=== PATIENT | female | born 1935 | race Caucasian/White ===

== ENCOUNTER → 2016-05-22 | Outpatient (CLI) | payer MEDICARE, OTHER ==
[~2016-05-22] MED LIST: APIX5 PO; APIX5TAB PO; CARB25TA PO; CEFT250T8 PO; CLON1 PO; CLON1TAB PO; DONE10TA14; ESOM1CAP6 PO; PRAM0.12 PO; REME30TA PO; SERT-132 PO; SYMB6CAP PO; TAB-TAB PO; TRAZ50TA4 PO
[2016-05-22 12:19] LABS: HEMATOCRIT 36.3 % (35.0-46.0); MEAN CELL VOLUME 87.6 FL (80.0-100.0); MEAN CORPUSCULAR HEMOGLOBIN 29.3 PG (27.0-34.0); MEAN CORPUSCULAR HGB CONC 33.5 % (32.0-36.0); PLATELET COUNT 254 TH/MM3 (150-450); RED BLOOD COUNT 4.14 MIL/MM3 (4.00-5.30); REVIEW FLAG FINAL; WHITE BLOOD COUNT 4.4 TH/MM3 (4.0-11.0)
[2016-05-22 12:51] LABS: ALKALINE PHOSPHATASE 84 U/L (45-117); ALT (GPT) 22 U/L (10-53); ANION GAP 7 MEQ/L (5-15); AST (GOT) 17 U/L (15-37); BICARBONATE 29.5 MEQ/L (21.0-32.0); BLOOD UREA NITROGEN 16 MG/DL (7-18); CHLORIDE 106 MEQ/L (98-107); FREE T4 0.88 NG/DL (0.76-1.46); GLOMERULAR FILTRATION RATE 53 ML/MIN (>89); GLUCOSE,FASTING 98 MG/DL (74-99); HDL CHOLESTEROL 72.9 MG/DL (40.0-60.0); LDL CHOLESTEROL 131 MG/DL (0-99); LDL CHOLESTEROL DIRECT 162 MG/DL (0-99); POTASSIUM 4.2 MEQ/L (3.5-5.1); SODIUM (NA) 142 MEQ/L (136-145); TOTAL BILIRUBIN ADULT 0.2 MG/DL (0.2-1.0)
[2016-05-22 15:51] LABS: HEMOGLOBIN A1a 0.9 %; HEMOGLOBIN A1b 1.8 %; HEMOGLOBIN Ao 85.3 %; HEMOGLOBIN P3 3.9 %
== END ==
LOC: PLAB 08:15
PROVIDERS: ATTEND Family Medicine
DX: E78.2 Mixed hyperlipidemia (principal); I10 Essential (primary) hypertension; E03.8 Other specified hypothyroidism; R73.01 Impaired fasting glucose
CPT/HCPCS: 36415; 80053; 80061; 83036; 83721; 84439; 84443; 85027

== ENCOUNTER → 2016-08-27 | Outpatient (CLI) | payer MEDICARE, OTHER ==
[2016-08-27 09:20] LABS: HEMATOCRIT 39.6 % (35.0-46.0); MEAN CELL VOLUME 83.8 FL (80.0-100.0); MEAN CORPUSCULAR HEMOGLOBIN 26.5 PG (27.0-34.0); MEAN CORPUSCULAR HGB CONC 31.6 % (32.0-36.0); PLATELET COUNT 252 TH/MM3 (150-450); RED BLOOD COUNT 4.72 MIL/MM3 (4.00-5.30); RED CELL DISTRIBUTION WIDTH 15.1 % (11.6-17.2); REVIEW FLAG FINAL
[2016-08-27 09:40] LABS: ANION GAP 8 MEQ/L (5-15); AST (GOT) 16 U/L (15-37); BICARBONATE 29.2 MEQ/L (21.0-32.0); BLOOD UREA NITROGEN 16 MG/DL (7-18); CHLORIDE 105 MEQ/L (98-107); GLOMERULAR FILTRATION RATE 53 ML/MIN (>89); GLUCOSE,FASTING 95 MG/DL (74-99); POTASSIUM 4.4 MEQ/L (3.5-5.1); SODIUM (NA) 142 MEQ/L (136-145)
[2016-08-27 10:06] LABS: ALKALINE PHOSPHATASE 109 U/L (45-117); ALT (GPT) 11 U/L (10-53); FREE T4 0.89 NG/DL (0.76-1.46); HDL CHOLESTEROL 62.8 MG/DL (40.0-60.0); LDL CHOLESTEROL 139 MG/DL (0-99); LDL CHOLESTEROL DIRECT 136 MG/DL (0-99); TOTAL BILIRUBIN ADULT 0.2 MG/DL (0.2-1.0)
== END ==
LOC: PLAB 06:50
PROVIDERS: ATTEND Family Medicine
DX: E78.2 Mixed hyperlipidemia (principal); I10 Essential (primary) hypertension; E03.8 Other specified hypothyroidism; G20 Parkinson's disease
CPT/HCPCS: 36415; 80053; 80061; 83721; 84439; 84443; 85027

== ENCOUNTER 2016-10-08 10:54 | Emergency (ER) | payer MEDICARE, OTHER ==
[~2016-10-08] VITALS: Ht 149.9 cm; Wt 60.0 kg
[2016-10-08 10:56] VITALS: BP 136/91; PULSE 109; RESP 20; TEMP 97.8; O2SAT 97
--- NOTE | 2016-10-08 11:04 | PD ---
HPI Chief Complaint: GI Complaint Time Seen by Provider: 11:03 Travel History International Travel<30 days: No Contact w/Intl Traveler<30days: No Traveled to known affect area: No History of Present Illness HPI 81 YO F with PMH of esophageal stricture, Parkinson's, hyperthyroidism, anxiety , depression, GERD presents to the ED for evaluation of 3 day history of inability to eat solid foods or take her medications. Patient states last attempt at eating a cracker was too painful. She has been drinking Boost and water and tea. She endorses one episode of retching but denies nausea and vomiting. She denies other somatic symptoms. She states she has a gastroenterology appointment on the with Dr. Oakley. [facility] Past Medical History Arthritis: Yes Blood Disorders: No Anxiety: Yes Depression: Yes Heart Rhythm Problems: No Cancer: No Cardiovascular Problems: Yes High Cholesterol: Yes Chest Pain: No Congestive Heart Failure: No Diabetes: No Diminished Hearing: No Endocrine: Yes Gastrointestinal Disorders: Yes GERD: Yes Genitourinary: Yes (UTI) Hypertension: Yes Immune Disorder: Yes Musculoskeletal: Yes Neurologic: Yes (PARKINSONS DISEASE) Parkinson's Disease: Yes Psychiatric: Yes Reproductive: No Respiratory: No Immunizations Current: Yes Thyroid Disease: No Past Surgical History Abdominal Surgery: Yes (HERNIA) Section: Yes Eye Surgery: Yes (CATARACT) Gynecologic Surgery: Yes Other Surgery: Yes (BUNIONECTOMY) Social History Alcohol Use: No Tobacco Use: No Substance Use: No Allergies-Medications (Allergen,Severity, Reaction): Coded Allergies: Darvon (Verified Allergy, Severe, FAINTED, 10/08/16) Penicillin (Verified Allergy, Mild, 10/08/16) Reported Meds & Prescriptions Reported Meds & Active Scripts Active Reported Clonazepam 1 Mg Tab 1 Mg PO DAILY Mirtazapine 30 Mg Tab 30 Mg PO HS Trazodone (Trazodone HCl) 50 Mg Tab 50 Mg PO HS Gabapentin 100 Mg Cap 100 Mg PO TID Nexium (Esomeprazole DR) 40 Mg Capdr 40 Mg PO DAILY Lorazepam 0.5 Mg Tab 0.5 Mg PO DAILY PRN Escitalopram (Escitalopram Oxalate) 10 Mg Tab 10 Mg PO DAILY Alprazolam 0.25 Mg Tab 0.25 Mg PO Q8H PRN Levothyroxine (Levothyroxine Sodium) 25 Mcg Tab 25 Mcg PO DAILY Megestrol (Megestrol Acetate) 20 Mg Tab 20 Mg PO DAILY Esomeprazole DR 40 Mg Capdr 40 Mg PO DAILY Carbidopa-Levodopa 25-100 Mg Tab 1 Tab PO Q8HR Sertraline (Sertraline HCl) 50 Mg Tab 50 Mg PO DAILY Review of Systems Except as stated in HPI: all other systems reviewed are Neg Physical Exam Narrative GENERAL: Well-nourished, well-developed obese white female in no acute distress. SKIN: Focused skin assessment warm/dry. HEAD: Normocephalic. EYES: No scleral icterus. No injection or drainage. NECK: Supple, trachea midline. No JVD or lymphadenopathy. CARDIOVASCULAR: Regular rate and rhythm without murmurs, gallops, or rubs. RESPIRATORY: Breath sounds equal bilaterally. No accessory muscle use. GASTROINTESTINAL: Abdomen soft, protuberant, nondistended. Mild epigastric tenderness. Active bowel sounds. MUSCULOSKELETAL: No cyanosis, or edema. BACK: Nontender without obvious deformity. No CVA tenderness. Data Data Last Documented VS Vital Signs Date Time Temp Pulse Resp B/P Pulse Ox O2 Delivery O2 Flow Rate FiO2 10/08/16 13:54 96 Room Air 10/08/16 10:56 97.8 109 20 136/91 Orders Barium Swallow (10/08/16 ) Iv Access Insert/Monitor (10/08/16 11:27) Ecg Monitoring (10/08/16 11:27) Oximetry (10/08/16 11:27) Sodium Chloride 0.9% Flush (Ns Flush) (10/08/16 11:30) Al-Mag Hy-Si 40-40-4 Mg/Ml Liq (Mag-Al P (10/08/16 12:15) Lidocaine 2% Viscous (Xylocaine 2% Visco (10/08/16 12:15) MDM Medical Decision Making Medical Screen Exam Complete: Yes Emergency Medical Condition: Yes Differential Diagnosis Esophageal stricture versus GERD versus hiatal hernia versus esophageal foreign body versus other Narrative Course 81 YO F with PMH of esophageal stricture, Parkinson's, hyperthyroidism, anxiety , depression, GERD presents to the ED for evaluation of 3 day history of inability to eat solid foods or take her medications. Patient states last attempt at eating a cracker was too painful. She has been drinking Boost and water and tea. She endorses one episode of retching but denies nausea and vomiting. Vitals reviewed. Patient is well-appearing on physical exam. She is able to drink a cup of water with no problems. There is mild epigastric tenderness but physical exam is otherwise unremarkable. Barium swallow reveals no esophageal obstruction, moderate sliding hiatal hernia, moderate nonspecific esophageal motility disorder. I discussed the results of the study with the patient. She has follow-up with the rocket engine mechanic in 9 days. She is instructed to eat a soft diet, drink plenty of fluids, use good posture when eating and follow up as planned. She received a GI Cocktail and reported improvement of her symptoms. She indicated understanding of the instructions and is agreeable to a care plan. She stable and discharged home. Diagnosis Primary Impression: Hiatal hernia Referrals: Juarez Oakley MD Patient Instructions: General Instructions, Hiatal Hernia (ED), Soft Diet (ED) Additional Instructions: Rest, hydrate. Eat a soft food diet for the next few days and gradually reintroduce new foods. Use good posture when eating. Make sure to take your Nexium daily. Follow-up with Dr. Oakley as planned. Return to the ED for any urgent or emergent medical condition. Disposition: 01 DISCHARGE HOME Condition: Stable Georgette Dave Oct 08, 2016 11:04
[2016-10-08] MEDS ORDERED: SODIUM CHLORIDE 0.9% FLUSH 10 ML FLUSH IV FLUSH PRN (11:30)
[2016-10-08] MEDS ORDERED: ESOM1CAP16 PO (11:31)
[2016-10-08] MEDS ORDERED: NEXI40CA PO (11:31)
[2016-10-08] MEDS ORDERED: MEGE20TA PO (11:31)
[2016-10-08] MEDS ORDERED: LEVO25TA4 PO (11:31)
[2016-10-08] MEDS ORDERED: LORA-373 PO (11:31)
[2016-10-08] MEDS ORDERED: ESCI10TA PO (11:31)
[2016-10-08] MEDS ORDERED: ALPR0.25 PO (11:31)
[2016-10-08] MEDS ORDERED: TRAZ50TA12 PO (11:31)
[2016-10-08] MEDS ORDERED: CLON1TAB PO (11:31)
[2016-10-08] MEDS ORDERED: SERT-132 PO (11:31)
[2016-10-08] MEDS ORDERED: CARB25TA9 PO (11:31)
[2016-10-08] MEDS ORDERED: GABA100C4 PO (11:31)
[2016-10-08] MEDS ORDERED: MIRT30TA PO (11:31)
--- NOTE | 2016-10-08 12:08 | RADRPT ---
EXAM DATE/TIME: 10/08/2016 11:39 [facility] COMPARISON: No previous studies available for comparison. INDICATIONS : Dysphagia; worsening symptoms. Scheduled for dilatation on Oct 17. FLUORO TIME: 0.9 minutes IMAGE COUNT: 15 CONTRAST: 1. Liquid E-Z Paque Barium Sulfate (60% w/v, 41% w.w) MEDICAL HISTORY : None. SURGICAL HISTORY : None. ENCOUNTER: Initial ACUITY: 2 days PAIN SCORE: 0/10 LOCATION: Esophagus. FINDINGS: There is a moderate nonspecific esophageal motility disorder. No obstructing or constricting lesions are seen within the esophagus. There is a moderate sized sliding hiatal hernia. CONCLUSION: 1. Negative for esophageal obstruction. Moderate size sliding hiatal hernia. Moderate nonspecific eso phageal motility disorder. Joseph Naranjo MD on October 08, 2016 at 12:04 Board Certified Radiologist. This report was verified electronically.
[2016-10-08] MEDS ORDERED: LIDOCAINE VISCOUS 2% SOLN 15 ML UDC PO ONE (12:15)
[2016-10-08] MEDS ORDERED: ALUMINUM/MAGNESIUM/SIMETH 30 ML CUP PO ONE (12:15)
[2016-10-08 13:54] VITALS: O2SAT 96
== END 2016-10-08 13:56 | disposition home or self-care (01) ==
LOC: NEPD 10:54
DX: K44.9 Diaphragmatic hernia without obstruction or gangrene (principal); I10 Essential (primary) hypertension; E07.9 Disorder of thyroid, unspecified; G20 Parkinson's disease; E78.00 Pure hypercholesterolemia, unspecified; Z87.39 Personal history of other diseases of the musculoskeletal system and connective tissue; Z86.59 Personal history of other mental and behavioral disorders; Z86.79 Personal history of other diseases of the circulatory system; Z87.19 Personal history of other diseases of the digestive system; Z87.448 Personal history of other diseases of urinary system
CPT/HCPCS: 74230; 99283

== ENCOUNTER → 2016-10-09 | Outpatient (CLI) | payer MEDICARE, OTHER ==
[~2016-10-09] MED LIST changes: +ALPR0.25 PO; -APIX5 PO; -APIX5TAB PO; -CARB25TA PO; +CARB25TA9 PO; -CEFT250T8 PO; -CLON1 PO; -DONE10TA14; +ESCI10TA PO; +ESOM1CAP16 PO; -ESOM1CAP6 PO; +GABA100C4 PO; +LEVO25TA4 PO; +LORA-373 PO; +MEGE20TA PO; +MIRT30TA PO; +NEXI40CA PO; -PRAM0.12 PO; -REME30TA PO; -SYMB6CAP PO; -TAB-TAB PO; +TRAZ50TA12 PO; -TRAZ50TA4 PO
[2016-10-09 12:25] LABS: CHLORIDE 102 MEQ/L (98-107); POTASSIUM 3.7 MEQ/L (3.5-5.1); SODIUM (NA) 137 MEQ/L (136-145)
[2016-10-09 12:30] LABS: ANION GAP 9 MEQ/L (5-15); BICARBONATE 25.6 MEQ/L (21.0-32.0); BLOOD UREA NITROGEN 16 MG/DL (7-18)
[2016-10-09 12:32] LABS: ALT (GPT) 8 U/L (10-53)
[2016-10-09 12:33] LABS: AST (GOT) 29 U/L (15-37); GLOMERULAR FILTRATION RATE 55 ML/MIN (>89)
[2016-10-09 12:34] LABS: TOTAL BILIRUBIN ADULT 0.6 MG/DL (0.2-1.0)
[2016-10-09 12:35] LABS: ALKALINE PHOSPHATASE 123 U/L (45-117)
== END ==
LOC: PLAB 11:40
PROVIDERS: ATTEND Internal Medicine Gastroenterology
DX: Z12.11 Encounter for screening for malignant neoplasm of colon (principal)
CPT/HCPCS: 36415; 80053

== ENCOUNTER → 2016-10-29 | Outpatient (CLI) | payer MEDICARE, OTHER | LOC: PLAB 06:41 | PROVIDERS: ATTEND Internal Medicine Gastroenterology | DX: R74.8 Abnormal levels of other serum enzymes (principal) | CPT/HCPCS: 36415; 82977 ==

== ENCOUNTER → 2016-11-26 | Outpatient (CLI) | payer MEDICARE, OTHER ==
[2016-11-26 09:30] LABS: HEMATOCRIT 39.8 % (35.0-46.0); MEAN CELL VOLUME 84.6 FL (80.0-100.0); MEAN CORPUSCULAR HEMOGLOBIN 26.7 PG (27.0-34.0); MEAN CORPUSCULAR HGB CONC 31.5 % (32.0-36.0); PLATELET COUNT 231 TH/MM3 (150-450); RED BLOOD COUNT 4.71 MIL/MM3 (4.00-5.30); RED CELL DISTRIBUTION WIDTH 16.3 % (11.6-17.2); REVIEW FLAG FINAL; WHITE BLOOD COUNT 4.9 TH/MM3 (4.0-11.0)
[2016-11-26 09:43] LABS: ANION GAP 7 MEQ/L (5-15); AST (GOT) 15 U/L (15-37); BLOOD UREA NITROGEN 16 MG/DL (7-18); CHLORIDE 106 MEQ/L (98-107); GLOMERULAR FILTRATION RATE 57 ML/MIN (>89); GLUCOSE,FASTING 89 MG/DL (74-99); POTASSIUM 3.5 MEQ/L (3.5-5.1); SODIUM (NA) 139 MEQ/L (136-145)
[2016-11-26 09:44] LABS: ALT (GPT) 22 U/L (10-53)
[2016-11-26 09:54] LABS: ALKALINE PHOSPHATASE 103 U/L (45-117); HDL CHOLESTEROL 62.4 MG/DL (40.0-60.0); LDL CHOLESTEROL 99 MG/DL (0-99); LDL CHOLESTEROL DIRECT 119 MG/DL (0-99); TOTAL BILIRUBIN ADULT 0.3 MG/DL (0.2-1.0)
[2016-11-26 18:04] LABS: HEMOGLOBIN A1a 1.1 %; HEMOGLOBIN A1b 1.8 %; HEMOGLOBIN Ao 84.9 %; HEMOGLOBIN P3 3.8 %
== END ==
LOC: PLAB 06:55
PROVIDERS: ATTEND Family Medicine
DX: R53.83 Other fatigue (principal); E78.2 Mixed hyperlipidemia; I10 Essential (primary) hypertension; R73.01 Impaired fasting glucose
CPT/HCPCS: 36415; 80053; 80061; 83036; 83721; 84443; 85027

== ENCOUNTER → 2017-02-21 | Outpatient (CLI) | payer MEDICARE, OTHER ==
[~2017-02-21] MED LIST changes: -LORA-373 PO; +LORA0.5T PO
[2017-02-21 09:39] LABS: MEAN CELL VOLUME 87.3 FL (80.0-100.0); MEAN CORPUSCULAR HEMOGLOBIN 28.6 PG (27.0-34.0); MEAN CORPUSCULAR HGB CONC 32.8 % (32.0-36.0); PLATELET COUNT 264 TH/MM3 (150-450); RED BLOOD COUNT 4.47 MIL/MM3 (4.00-5.30); RED CELL DISTRIBUTION WIDTH 14.5 % (11.6-17.2); REVIEW FLAG FINAL; WHITE BLOOD COUNT 6.5 TH/MM3 (4.0-11.0)
[2017-02-21 09:50] LABS: ANION GAP 5 MEQ/L (5-15); AST (GOT) 15 U/L (15-37); BICARBONATE 29.3 MEQ/L (21.0-32.0); BLOOD UREA NITROGEN 14 MG/DL (7-18); CHLORIDE 104 MEQ/L (98-107); GLOMERULAR FILTRATION RATE 59 ML/MIN (>89); GLUCOSE,FASTING 90 MG/DL (74-99); POTASSIUM 3.8 MEQ/L (3.5-5.1); SODIUM (NA) 138 MEQ/L (136-145)
[2017-02-21 10:18] LABS: ALKALINE PHOSPHATASE 97 U/L (45-117); ALT (GPT) 18 U/L (10-53); FREE T4 1.04 NG/DL (0.76-1.46); HDL CHOLESTEROL 66.1 MG/DL (40.0-60.0); LDL CHOLESTEROL 121 MG/DL (0-99); LDL CHOLESTEROL DIRECT 140 MG/DL (0-99); TOTAL BILIRUBIN ADULT 0.2 MG/DL (0.2-1.0)
[2017-02-21 10:21] LABS: WESTERGREN SEDIMENTATION RATE 28 mm/hr (0-30)
[2017-02-21 16:06] LABS: HEMOGLOBIN A1a 1.1 %; HEMOGLOBIN A1b 1.9 %; HEMOGLOBIN Ao 84.5 %; HEMOGLOBIN LA1C 2.1 %
== END ==
LOC: PLAB 06:55
PROVIDERS: ATTEND Family Medicine
DX: R53.83 Other fatigue (principal); E78.2 Mixed hyperlipidemia; I10 Essential (primary) hypertension; E03.8 Other specified hypothyroidism; M35.9 Systemic involvement of connective tissue, unspecified; E55.9 Vitamin D deficiency, unspecified; E53.9 Vitamin B deficiency, unspecified
CPT/HCPCS: 36415; 80053; 80061; 82306; 82607; 83036; 83721; 84439; 84443; 85027; 85652

== ENCOUNTER → 2017-04-04 | Outpatient (CLI) | payer MEDICARE, OTHER ==
[2017-04-04 10:31] LABS: FREE T4 0.88 NG/DL (0.76-1.46)
== END ==
LOC: PLAB 06:43
PROVIDERS: ATTEND Family Medicine
DX: R53.83 Other fatigue (principal); E03.8 Other specified hypothyroidism; E55.9 Vitamin D deficiency, unspecified
CPT/HCPCS: 36415; 82306; 84439; 84443

== ENCOUNTER → 2017-04-11 | Outpatient (CLI) | payer MEDICARE, OTHER ==
[~2017-04-11] MED LIST changes: +MACR100C2 PO
[2017-04-11 11:51] LABS: % SATURATION IRON PROFILE 7.3 % (20-50); FREE T4 0.83 NG/DL (0.76-1.46); IRON (FE) 34 MCG/DL (50-170); TOTAL IRON BINDING CAPACITY 466 MCG/DL (250-450)
[2017-04-11 15:14] LABS: HEMOGLOBIN A1C 5.8 % (4.3-6.0)
[2017-04-14 07:40] LABS: KAPPA LIGHT CHAIN 237 MG/DL (170-370)
[2017-04-14 07:50] LABS: IMMUNOGLOBULIN A 151 MG/DL (96-532); IMMUNOGLOBULIN G 968 MG/DL (650-1610); IMMUNOGLOBULIN M 106 MG/DL (39-238); LAMBDA LIGHT CHAIN 125 MG/DL (90-210)
== END ==
LOC: PLAB 07:55
PROVIDERS: ATTEND Psychiatry & Neurology Neurology
DX: G60.9 Hereditary and idiopathic neuropathy, unspecified (principal); R41.3 Other amnesia
CPT/HCPCS: 36415; 82607; 82784; 83036; 83540; 83550; 83883; 84439; 84443; 86334

== ENCOUNTER 2017-04-18 13:50 | Emergency (ER) | payer MEDICARE, OTHER ==
[~2017-04-18] VITALS: Ht 162.6 cm; Wt 70.0 kg
[~2017-04-18 13:50] MED LIST changes: -MACR100C2 PO
[2017-04-18 14:00] VITALS: BP 133/63; PULSE 85; RESP 16; TEMP 97.5; O2SAT 98
--- NOTE | 2017-04-18 14:14 | PD ---
HPI Chief Complaint: Pain: Acute or Chronic Time Seen by Provider: 14:14 Travel History International Travel<30 days: No Contact w/Intl Traveler<30days: No Traveled to known affect area: No History of Present Illness HPI 81-year-old female with history of Parkinson's disease, neuropathy, hypertension , presents to emergency department for evaluation of bilateral lower extremity pain. Patient states she typically has bilateral lower extremity pain over the last hour and a half she has began having restless legs and more pain down the lateral aspect of mostly the thighs. She denies any injury. No recent injury. She is ambulatory with walker assistance and is still able to ambulate. She takes gabapentin for her neuropathy. She denies any recent illnesses, fever or chills. States there cramping and it's difficult to hold still. She has no other symptoms to report. PFSH Past Medical History Arthritis: Yes Blood Disorders: No Anxiety: Yes Depression: Yes Heart Rhythm Problems: No Cancer: No Cardiovascular Problems: Yes High Cholesterol: Yes Chest Pain: No Congestive Heart Failure: No Diabetes: No Diminished Hearing: No Endocrine: Yes Gastrointestinal Disorders: Yes GERD: Yes Genitourinary: Yes (UTI) Hypertension: Yes Immune Disorder: Yes Musculoskeletal: Yes Neurologic: Yes (PARKINSONS DISEASE) Parkinson's Disease: Yes Psychiatric: Yes Reproductive: No Respiratory: No Immunizations Current: Yes Thyroid Disease: No Past Surgical History Abdominal Surgery: Yes (HERNIA) Section: Yes Eye Surgery: Yes (CATARACT) Gynecologic Surgery: Yes Other Surgery: Yes (BUNIONECTOMY) Social History Alcohol Use: No Tobacco Use: No Substance Use: No Allergies-Medications (Allergen,Severity, Reaction): Coded Allergies: propoxyphene (Unverified Allergy, Severe, FAINTED, 10/22/16) penicillin G (Unverified Allergy, Mild, 10/22/16) Reported Meds & Prescriptions Reported Meds & Active Scripts Active Reported Clonazepam 1 Mg Tab 1 Mg PO DAILY Mirtazapine 30 Mg Tab 30 Mg PO HS Trazodone (Trazodone HCl) 50 Mg Tab 50 Mg PO HS Gabapentin 100 Mg Cap 300 Mg PO TID Nexium (Esomeprazole DR) 40 Mg Capdr 40 Mg PO DAILY Lorazepam 0.5 Mg Tab 0.5 Mg PO DAILY PRN Escitalopram (Escitalopram Oxalate) 10 Mg Tab 10 Mg PO DAILY Alprazolam 0.25 Mg Tab 0.25 Mg PO Q8H PRN Levothyroxine (Levothyroxine Sodium) 25 Mcg Tab 75 Mcg PO DAILY Megestrol (Megestrol Acetate) 20 Mg Tab 20 Mg PO DAILY Esomeprazole DR 40 Mg Capdr 40 Mg PO DAILY Sertraline (Sertraline HCl) 50 Mg Tab 50 Mg PO DAILY Review of Systems Except as stated in HPI: all other systems reviewed are Neg Physical Exam Narrative GENERAL: Well-nourished elderly female patient, in no acute distress. SKIN: Focused skin assessment warm/dry. HEAD: Atraumatic. Normocephalic. EYES: Pupils equal and round. No scleral icterus. No injection or drainage. ENT: No nasal bleeding or discharge. Mucous membranes pink and moist. NECK: Trachea midline. No JVD. CARDIOVASCULAR: Regular rate and rhythm. No murmur appreciated. RESPIRATORY: No accessory muscle use. Clear to auscultation. Breath sounds equal bilaterally. GASTROINTESTINAL: Abdomen soft, non-tender, nondistended. Hepatic and splenic margins not palpable. MUSCULOSKELETAL: No obvious deformities. No clubbing. No cyanosis. No edema. NEUROLOGICAL: Awake and alert. No obvious cranial nerve deficits. Motor grossly within normal limits. Normal speech. Data Data Last Documented VS Vital Signs Date Time Temp Pulse Resp B/P (MAP) Pulse Ox O2 Delivery O2 Flow Rate FiO2 04/18/17 16:32 81 16 137/76 (96) 99 Room Air 04/18/17 14:00 97.5 Orders Orders Iv Access Insert/Monitor (04/18/17 14:14) Complete Blood Count With Diff (04/18/17 14:14) Basic Metabolic Panel (Bmp) (04/18/17 14:14) Ketorolac Inj (Toradol Inj) (04/18/17 14:15) Sodium Chlorid 0.9% 500 Ml Inj (Ns 500 M (04/18/17 14:15) Morphine Inj (Morphine Inj) (04/18/17 16:00) Ondansetron Inj (Zofran Inj) (04/18/17 16:00) Labs Laboratory Tests Test 04/18/17 15:00 White Blood Count 6.2 TH/MM3 Red Blood Count 4.11 MIL/MM3 Hemoglobin 11.6 GM/DL Hematocrit 35.4 % Mean Corpuscular Volume 86.2 FL Mean Corpuscular Hemoglobin 28.1 PG Mean Corpuscular Hemoglobin Concent 32.7 % Red Cell Distribution Width 14.5 % Platelet Count 216 TH/MM3 Mean Platelet Volume 8.5 FL Neutrophils (%) (Auto) 65.9 % Lymphocytes (%) (Auto) 22.3 % Monocytes (%) (Auto) 8.6 % Eosinophils (%) (Auto) 2.3 % Basophils (%) (Auto) 0.9 % Neutrophils # (Auto) 4.1 TH/MM3 Lymphocytes # (Auto) 1.4 TH/MM3 Monocytes # (Auto) 0.5 TH/MM3 Eosinophils # (Auto) 0.1 TH/MM3 Basophils # (Auto) 0.1 TH/MM3 CBC Comment DIFF FINAL Differential Comment Blood Urea Nitrogen 14 MG/DL Creatinine 0.97 MG/DL Random Glucose 106 MG/DL Calcium Level 8.2 MG/DL Sodium Level 142 MEQ/L Potassium Level 4.1 MEQ/L Chloride Level 109 MEQ/L Carbon Dioxide Level 27.3 MEQ/L Anion Gap 6 MEQ/L Estimat Glomerular Filtration Rate 55 ML/MIN MDM Medical Decision Making Medical Screen Exam Complete: Yes Emergency Medical Condition: Yes Medical Record Reviewed: Yes Differential Diagnosis Neuropathy versus electrolyte abnormality versus Parkinson's disease versus restless leg Narrative Course 81-year-old female presents to emergency department for evaluation of bilateral lower extremity pain. Patient appears without distress. Vital signs are stable. Patient is treated for pain with Toradol. Upon reassessment she reports the pain is not resolved. I will give her additional pain control but have explained with her neuropathy we will not fully resolve the pain. I advised to follow-up with primary care provider and return immediately with acute worsening of symptoms. Diagnosis Primary Impression: Leg pain, bilateral Additional Impression: Neuropathy Referrals: Primary Care Physician Patient Instructions: Diabetic Peripheral Neuropathy (GEN), General Instructions Additional Instructions: Follow-up with her primary care provider Continue medication as already prescribed Return immediately with any acute worsening symptoms Med/Other Pt SpecificInfo: No Change to Meds Disposition: 01 DISCHARGE HOME Condition: Stable LeonardoLyn prince JOSELIN Apr 18, 2017 14:14
[2017-04-18] MEDS ORDERED: SODIUM CHLORID 0.9% 500 ML INJ 500 ML IV ONE (14:15)
[2017-04-18] MEDS ORDERED: KETOROLAC TROMETHAMINE 30 MG/ML (IVP) VIAL IV PUSH ONE (14:15)
[2017-04-18 15:06] VITALS: BP 122/57; PULSE 88; RESP 22; O2SAT 98
[2017-04-18 15:21] LABS: AUTOMATED NEUTROPHIL # 4.1 TH/MM3 (1.8-7.7); BASOPHIL # 0.1 TH/MM3 (0-0.2); BASOPHIL % 0.9 % (0.0-2.0); EOSINOPHIL # 0.1 TH/MM3 (0-0.4); EOSINOPHIL % 2.3 % (0.0-4.0); HEMATOCRIT 35.4 % (35.0-46.0); HEMOGLOBIN 11.6 GM/DL (11.6-15.3); LYMPH % 22.3 % (9.0-44.0); LYMPHOCYTE # 1.4 TH/MM3 (1.0-4.8); MEAN CELL VOLUME 86.2 FL (80.0-100.0); MEAN CORPUSCULAR HEMOGLOBIN 28.1 PG (27.0-34.0); MEAN CORPUSCULAR HGB CONC 32.7 % (32.0-36.0); MEAN PLATELET VOLUME 8.5 FL (7.0-11.0); MONO % 8.6 % (0.0-8.0); MONOCYTE # 0.5 TH/MM3 (0-0.9); NEUT % 65.9 % (16.0-70.0); PLATELET COUNT 216 TH/MM3 (150-450); RED BLOOD COUNT 4.11 MIL/MM3 (4.00-5.30); RED CELL DISTRIBUTION WIDTH 14.5 % (11.6-17.2); WHITE BLOOD COUNT 6.2 TH/MM3 (4.0-11.0)
[2017-04-18 15:45] VITALS: BP 125/62; PULSE 88; RESP 17; O2SAT 98
[2017-04-18 15:50] LABS: BICARBONATE 27.3 MEQ/L (21.0-32.0); CALCIUM 8.2 MG/DL (8.5-10.1); CREATININE 0.97 MG/DL (0.50-1.00)
[2017-04-18] MEDS ORDERED: MORPHINE SULFATE 2 MG/ML INJ IV PUSH ONE (16:00)
[2017-04-18] MEDS ORDERED: ONDANSETRON HCL 4 MG/2 ML VIAL IV PUSH ONE (16:00)
[2017-04-18 16:32] VITALS: BP 137/76; PULSE 81; RESP 16; O2SAT 99
[2017-04-19] MEDS ORDERED: MACR100C2 PO (05:03)
== END 2017-04-18 17:55 | disposition home or self-care (01) ==
LOC: NEPE 13:50
DX: G62.9 Polyneuropathy, unspecified (principal); M79.605 Pain in left leg; M79.604 Pain in right leg; G20 Parkinson's disease; I10 Essential (primary) hypertension; M19.90 Unspecified osteoarthritis, unspecified site; F41.9 Anxiety disorder, unspecified; E78.00 Pure hypercholesterolemia, unspecified; K21.9 Gastro-esophageal reflux disease without esophagitis
CPT/HCPCS: 80048; 85025; 96361; 96374; 96375; 99284; J1885; J2270; J2405; J7040

== ENCOUNTER 2017-04-19 02:36 | Emergency (ER) | payer MEDICARE, OTHER ==
[~2017-04-19] VITALS: Ht 152.4 cm; Wt 61.4 kg
[2017-04-19 02:39] VITALS: BP 117/59; PULSE 89; TEMP 97.7; O2SAT 98
[2017-04-19] MEDS ORDERED: DEXAMETHASONE SOD PHOS 4 MG/ML VIAL IM ONE (03:15)
[2017-04-19] MEDS ORDERED: KETOROLAC TROMETHAMINE 60 MG/2 ML (IM) VIAL IM ONE (03:15)
[2017-04-19 04:00] VITALS: BP 140/66; PULSE 70; O2SAT 96
--- NOTE | 2017-04-19 04:30 | PD ---
HPI Chief Complaint: Pain: Acute or Chronic Time Seen by Provider: 03:12 Travel History International Travel<30 days: No Contact w/Intl Traveler<30days: No Traveled to known affect area: No History of Present Illness HPI 81-year-old female presents to the emergency department for complaint of persistent chronic restless leg syndrome unrelieved by multiple medications provided by her primary care provider. Patient saw her primary care provider as recently as 2 days ago this week. Patient has already been seen once today in the emergency department for complaints of her restless leg syndrome. Patient has had no injury or fall. Patient's had no fever chills. Patient had no lower extremity numbness tingling or weakness. Patient denies any bladder or bowel dysfunction. Patient had no saddle anesthesia. Patient did take 2 extra doses of her Neurontin this evening for her symptoms. No recent long distance travel protracted bedrest or surgical procedure no swelling of the lower extremities no redness or warmth and no coolness or pallor. PFSH Past Medical History Narrative Medical Anxiety depression hypothyroidism chronic pain syndrome dyslipidemia restless leg syndrome peripheral neuropathy; no alcohol use no tobacco use surgical nursing is reviewed Arthritis: Yes Blood Disorders: No Anxiety: Yes Depression: Yes Heart Rhythm Problems: No Cancer: No Cardiovascular Problems: Yes High Cholesterol: Yes Chest Pain: No Congestive Heart Failure: No Diabetes: No Diminished Hearing: Yes Endocrine: Yes Gastrointestinal Disorders: Yes GERD: Yes Genitourinary: Yes (UTI) Hypertension: Yes Immune Disorder: Yes Medical other: Yes (REFLUX, ARTHRITIS) Musculoskeletal: Yes Neurologic: Yes (PARKINSONS DISEASE,restless leg, neuropathy) Parkinson's Disease: Yes Psychiatric: Yes Reproductive: No Respiratory: No Immunizations Current: Yes Thyroid Disease: No Tetanus Vaccination: < 5 Years Influenza Vaccination: Yes Past Surgical History Abdominal Surgery: Yes (HERNIA) Section: Yes Eye Surgery: Yes (CATARACT) Gynecologic Surgery: Yes Other Surgery: Yes (BUNIONECTOMY) Social History Alcohol Use: No Tobacco Use: No Substance Use: No Allergies-Medications (Allergen,Severity, Reaction): Coded Allergies: propoxyphene (Unverified Allergy, Severe, FAINTED, 10/22/16) penicillin G (Unverified Allergy, Mild, 10/22/16) Reported Meds & Prescriptions Reported Meds & Active Scripts Active Reported Clonazepam 1 Mg Tab 1 Mg PO DAILY Mirtazapine 30 Mg Tab 30 Mg PO HS Trazodone (Trazodone HCl) 50 Mg Tab 50 Mg PO HS Gabapentin 100 Mg Cap 300 Mg PO TID Nexium (Esomeprazole DR) 40 Mg Capdr 40 Mg PO DAILY Lorazepam 0.5 Mg Tab 0.5 Mg PO DAILY PRN Escitalopram (Escitalopram Oxalate) 10 Mg Tab 10 Mg PO DAILY Alprazolam 0.25 Mg Tab 0.25 Mg PO Q8H PRN Levothyroxine (Levothyroxine Sodium) 25 Mcg Tab 75 Mcg PO DAILY Megestrol (Megestrol Acetate) 20 Mg Tab 20 Mg PO DAILY Esomeprazole DR 40 Mg Capdr 40 Mg PO DAILY Sertraline (Sertraline HCl) 50 Mg Tab 50 Mg PO DAILY Review of Systems Except as stated in HPI: all other systems reviewed are Neg General / Constitutional: No: Fever HENT: No: Congestion Cardiovascular: No: Chest Pain or Discomfort Respiratory: No: Shortness of Breath Gastrointestinal: No: Nausea, Vomiting, Abdominal Pain Genitourinary: No: Decreased Urinary Output, Flank Pain Musculoskeletal: Positive: Myalgias, Arthralgias, Pain Skin: No Rash Neurologic: No: Weakness, Dizziness, Syncope, Focal Abnormalities, Coordination Problem Psychiatric: Positive: Anxiety Endocrine: No: Heat Intolerance Hematologic/Lymphatic: No: Easy Bruising Physical Exam Narrative GENERAL: Elderly female in obvious discomfort from her legs as she moves them both about frequently. SKIN: Warm and dry. HEAD: Normocephalic. EYES: No scleral icterus. No injection or drainage. NECK: Supple, trachea midline. No JVD or lymphadenopathy. CARDIOVASCULAR: Regular rate and rhythm without murmurs, gallops, or rubs. RESPIRATORY: Breath sounds equal bilaterally. No accessory muscle use. GASTROINTESTINAL: Abdomen soft, non-tender, nondistended. MUSCULOSKELETAL: No cyanosis, or edema. No lower extremity edema bilaterally sensation is intact bilaterally patient has 5/5 motor strength bilaterally DTRs are 2+ and equal without clonus bilaterally no Homans sign and no palpable posterior calf voiding. Capillary refill is brisk and less than 2 seconds. With 2+ dorsalis pedis pulses bilaterally. BACK: Nontender without obvious deformity. No CVA tenderness. Data Data Last Documented VS Vital Signs Date Time Temp Pulse Resp B/P (MAP) Pulse Ox O2 Delivery O2 Flow Rate FiO2 04/19/17 02:39 97.7 89 117/59 (78) 98 Orders Orders Dexamethasone Inj (Decadron Inj) (04/19/17 03:15) Ketorolac Inj (Toradol Inj) (04/19/17 03:15) Urinalysis - C+S If Indicated (04/19/17 03:12) Urine Culture (04/19/17 04:25) Nitrofurantoin Monohyd Macrocr (Macrobid (04/19/17 05:00) Ed Discharge Order (04/19/17 05:03) Labs Laboratory Tests Test 04/19/17 04:25 Urine Color YELLOW Urine Turbidity HAZY Urine pH 5.0 Urine Specific [place] 1.019 Urine Protein NEG mg/dL Urine Glucose (UA) NEG mg/dL Urine Ketones NEG mg/dL Urine Occult Blood NEG Urine Nitrite NEG Urine Bilirubin NEG Urine Urobilinogen LESS THAN 2.0 MG/DL Urine Leukocyte Esterase MOD Urine RBC 1 /hpf Urine WBC 7 /hpf Urine WBC Clumps RARE Urine Squamous Epithelial Cells 6 /hpf Urine Bacteria RARE /hpf Urine Mucus FEW /lpf Microscopic Urinalysis Comment CATH-CULTURE IND MDM Medical Decision Making Medical Screen Exam Complete: Yes Emergency Medical Condition: Yes Medical Record Reviewed: Yes Interpretation(s) Urinalysis: Positive leukocyte esterase white blood cells, white blood cells bacteria catheterized urine culture indicated Differential Diagnosis Restless leg syndrome peripheral neuropathy sciatica piriformis syndrome lumbar radiculopathy; no findings or history for cauda equina syndrome Narrative Course Patient administered Decadron and Toradol; urine specimen ordered Urine specimen collected and sent for resulting catheterized urine specimen identified to have white blood cells clumps white blood cells leukocyte esterase and bacteria; culture indicated; patient given first dose of antibiotic Macrobid in the emergency department Diagnosis Primary Impression: Restless leg syndrome Additional Impression: UTI (urinary tract infection) Referrals: Primary Care Physician 3 days Patient Instructions: General Instructions Additional Instructions: Continue current chronic medications as chronically prescribed do not take medications any different than as prescribed Complete course of antibiotic as prescribed Follow-up with primary care provider call office on Friday Return to the emergency department as needed Med/Other Pt SpecificInfo: Prescription(s) given Scripts Nitrofurantoin Monohydrate Macrocrystals (Macrobid) 100 Mg Cap 100 MG PO BID for Infection for 10 Days, #20 CAP 0 Refills Prov: Amie Madrid MD 04/19/17 Disposition: 01 DISCHARGE HOME Condition: Stable Amie Madrid MD Apr 19, 2017 04:30
[2017-04-19 04:56] LABS: BACTERIA, URINE RARE /hpf; BILIRUBIN, URINE NEG (NEG); BLOOD, URINE NEG (NEG); GLUCOSE,URINE NEG (NEG); KETONE, URINE NEG (NEG); MUCUS URINE FEW /lpf (OCC); NITRITE,URINE NEG (NEG); SQUAMOUS EPITHELIAL CELL URINE 6 /hpf (0-5); URINE COLOR YELLOW (YELLW/STRAW); URINE LEUKOCYTE ESTERASE MOD (NEG); WHITE BLOOD CELL CLUMPS RARE
[2017-04-19] MEDS ORDERED: NITROFURANTOIN MONOHYD MACROCR 100 MG CAP PO ONE (05:00)
[2017-04-19] MEDS ORDERED: MACR100C2 PO (05:03)
[2017-04-19 05:15] VITALS: BP 117/71; PULSE 81; RESP 18; O2SAT 96
== END 2017-04-19 07:19 | disposition home or self-care (01) ==
LOC: NEPC 02:36
DX: G25.81 Restless legs syndrome (principal); N39.0 Urinary tract infection, site not specified; B96.89 Other specified bacterial agents as the cause of diseases classified elsewhere; G62.9 Polyneuropathy, unspecified; E03.9 Hypothyroidism, unspecified; F41.8 Other specified anxiety disorders; M19.90 Unspecified osteoarthritis, unspecified site; E78.00 Pure hypercholesterolemia, unspecified; H91.90 Unspecified hearing loss, unspecified ear; G20 Parkinson's disease; I10 Essential (primary) hypertension; Z88.0 Allergy status to penicillin
CPT/HCPCS: 81001; 87086; 96372; 99284; J1100; J1885

== ENCOUNTER → 2017-07-16 | Outpatient (CLI) | payer MEDICARE, OTHER ==
[~2017-07-16] MED LIST changes: -CARB25TA9 PO; +MACR100C2 PO
[2017-07-16 14:15] LABS: FREE T4 0.85 NG/DL (0.76-1.46)
== END ==
LOC: PLAB 10:23
PROVIDERS: ATTEND Family Medicine
DX: E03.8 Other specified hypothyroidism (principal); E55.9 Vitamin D deficiency, unspecified
CPT/HCPCS: 36415; 82306; 84439; 84443

== ENCOUNTER 2017-08-31 08:55 | Emergency (ER) | payer MEDICARE, OTHER ==
[~2017-08-31] VITALS: Ht 149.9 cm; Wt 56.0 kg
[2017-08-31 09:01] VITALS: BP 123/74; PULSE 87; RESP 16; TEMP 97.8; O2SAT 99
[2017-08-31] MEDS ORDERED: CARI1TAB45 PO (09:18)
[2017-08-31] MEDS ORDERED: PRAM0.12 PO (09:18)
[2017-08-31] MEDS ORDERED: CHOL10008 PO (09:18)
[2017-08-31] MEDS ORDERED: PANT40TA3 PO (09:18)
[2017-08-31] MEDS ORDERED: LEVO25TA4 PO (09:18)
[2017-08-31] MEDS ORDERED: AMOX500C PO (09:18)
[2017-08-31] MEDS ORDERED: HIGHTAB3 (09:18)
[2017-08-31] MEDS ORDERED: SUCR1TAB PO (09:18)
[2017-08-31] MEDS ORDERED: CARB200T PO (09:18)
[2017-08-31] MEDS ORDERED: GABA600T PO (09:18)
[2017-08-31] MEDS ORDERED: traMADol HCL 50 MG TAB PO ONE (09:45)
--- NOTE | 2017-08-31 09:50 | PD ---
HPI Chief Complaint: Pain: Acute or Chronic Time Seen by Provider: 09:35 Travel History International Travel<30 days: No Contact w/Intl Traveler<30days: No Traveled to known affect area: No History of Present Illness HPI Patient presents to the emergency department complaining of neuropathy pain and an episode of chest pain. Patient states that she has had cramping in her L thigh for the past 2-3 years and in her R thigh for the past 3-4 months and they both got worse over the past 2 and half hours. She took Neurontin but that did not help as well as ibuprofen. Last dose of Neurontin was 6:00 this morning. It is described as being 10 out of 10, constant 2 hours, behind her thighs, no alleviating or aggravating factors. She denies fever, chills, nausea , vomiting, shortness of breath, recent travel, calf pain/swelling. Reports chronic left foot numbness. Also reports 3-4 hours ago she had intermittent episode of sternal chest pain, nonradiating, 4 minutes in duration, sharp, new onset. The leg cramping per patient is NOT new. It's the same pain she's had for months. PFSH Past Medical History Hx Anticoagulant Therapy: No Arthritis: Yes Blood Disorders: No Anxiety: Yes Depression: Yes Heart Rhythm Problems: No Cancer: No Cardiovascular Problems: Yes High Cholesterol: Yes Chest Pain: No Congestive Heart Failure: No Diabetes: No Diminished Hearing: Yes Endocrine: Yes Gastrointestinal Disorders: Yes GERD: Yes Genitourinary: Yes (UTI) Hypertension: Yes Immune Disorder: Yes Implanted Vascular Access Dvce: No Medical other: Yes (REFLUX, ARTHRITIS) Musculoskeletal: Yes Neurologic: Yes (,restless leg, neuropathy) Psychiatric: Yes Reproductive: No Respiratory: No Immunizations Current: Yes Thyroid Disease: No Tetanus Vaccination: < 5 Years ?: Not Past Surgical History Abdominal Surgery: Yes (HERNIA) Section: Yes Eye Surgery: Yes (CATARACT) Gynecologic Surgery: Yes Other Surgery: Yes (BUNIONECTOMY) Social History Alcohol Use: No Tobacco Use: No Substance Use: No Allergies-Medications (Allergen,Severity, Reaction): Coded Allergies: propoxyphene (Unverified Allergy, Severe, FAINTED, 08/31/17) penicillin G (Unverified Allergy, Mild, 08/31/17) Uncoded Allergies: DALVAN (Allergy, Severe, 08/31/17) Reported Meds & Prescriptions Reported Meds & Active Scripts Active Tramadol (Tramadol HCl) 50 Mg Tab 50 Mg PO Q6H PRN 2 Days Reported Pramipexole (Pramipexole Dihydrochloride) 0.125 Mg Tab 0.125 Mg PO HS [Ferrous Sulfate] DIRECTED Vitamin D3 (Cholecalciferol) 1,000 Unit Cap 1,000 Units PO DAILY Gabapentin 600 Mg Tab 600 Mg PO BID Carbamazepine 200 Mg Tab 200 Mg PO BID Sucralfate 1 Gram Tab 1 Gm PO QID on empty stomach Carisoprodol 250 Mg Tab 250 Mg PO QID PRN Pantoprazole (Pantoprazole Sodium) 40 Mg Tab 40 Mg PO BID Amoxicillin 500 Mg Cap 500 Mg PO QID Levothyroxine (Levothyroxine Sodium) 25 Mcg Tab 25 Mcg PO DAILY Clonazepam 1 Mg Tab 1 Mg PO DAILY Mirtazapine 30 Mg Tab 30 Mg PO HS Trazodone (Trazodone HCl) 50 Mg Tab 50 Mg PO HS Megestrol (Megestrol Acetate) 20 Mg Tab 20 Mg PO DAILY Esomeprazole DR 40 Mg Capdr 40 Mg PO DAILY Sertraline (Sertraline HCl) 50 Mg Tab 50 Mg PO DAILY Review of Systems Except as stated in HPI: all other systems reviewed are Neg Physical Exam Narrative GENERAL: No acute distress. SKIN: Focused skin assessment warm/dry. HEAD: Atraumatic. Normocephalic. EYES: Pupils equal and round. No scleral icterus. No injection or drainage. ENT: No nasal bleeding or discharge. Mucous membranes pink and moist. NECK: Trachea midline. No JVD. CARDIOVASCULAR: Regular rate and rhythm. No murmur appreciated. RESPIRATORY: No accessory muscle use. Clear to auscultation. Breath sounds equal bilaterally. GASTROINTESTINAL: Abdomen soft, non-tender, nondistended. Hepatic and splenic margins not palpable. MUSCULOSKELETAL: 2+ DP pulses bilat. No clubbing. No cyanosis. No edema. + posterior aspect of thigh TTP above knee-bilat, no swelling noted, no calf pain or swelling. Negative Homans' sign NEUROLOGICAL: Awake and alert. No obvious cranial nerve deficits. Motor grossly within normal limits. Normal speech. PSYCHIATRIC: Appropriate mood and affect; insight and judgment normal. Data Data Last Documented VS Vital Signs Date Time Temp Pulse Resp B/P (MAP) Pulse Ox O2 Delivery O2 Flow Rate FiO2 08/31/17 11:28 89 16 145/95 (112) 99 Room Air 08/31/17 09:01 97.8 Orders Orders Electrocardiogram (08/31/17 09:45) Complete Blood Count With Diff (08/31/17 09:45) Comprehensive Metabolic Panel (08/31/17 09:45) Creatine Kinase (Cpk) (08/31/17 09:45) Ckmb (Isoenzyme) Profile (08/31/17 09:45) Troponin I (08/31/17 09:45) Magnesium (Mg) (08/31/17 09:45) Chest, Single Ap (08/31/17 09:45) Iv Access Insert/Monitor (08/31/17 09:45) Ecg Monitoring (08/31/17 09:45) Oximetry (08/31/17 09:45) Tramadol (Ultram) (08/31/17 09:45) Morphine Inj (Morphine Inj) (08/31/17 11:00) Labs Laboratory Tests Test 08/31/17 09:50 White Blood Count 5.3 TH/MM3 Red Blood Count 4.26 MIL/MM3 Hemoglobin 12.1 GM/DL Hematocrit 37.3 % Mean Corpuscular Volume 87.6 FL Mean Corpuscular Hemoglobin 28.3 PG Mean Corpuscular Hemoglobin Concent 32.3 % Red Cell Distribution Width 15.0 % Platelet Count 245 TH/MM3 Mean Platelet Volume 7.9 FL Neutrophils (%) (Auto) 58.4 % Lymphocytes (%) (Auto) 29.5 % Monocytes (%) (Auto) 9.6 % Eosinophils (%) (Auto) 1.8 % Basophils (%) (Auto) 0.7 % Neutrophils # (Auto) 3.1 TH/MM3 Lymphocytes # (Auto) 1.6 TH/MM3 Monocytes # (Auto) 0.5 TH/MM3 Eosinophils # (Auto) 0.1 TH/MM3 Basophils # (Auto) 0.0 TH/MM3 CBC Comment DIFF FINAL Differential Comment Blood Urea Nitrogen 16 MG/DL Creatinine 0.82 MG/DL Random Glucose 80 MG/DL Total Protein 6.9 GM/DL Albumin 3.2 GM/DL Calcium Level 8.7 MG/DL Magnesium Level 2.3 MG/DL Alkaline Phosphatase 95 U/L Aspartate Amino Transf (AST/SGOT) 12 U/L Alanine Aminotransferase (ALT/SGPT) 18 U/L Total Bilirubin 0.2 MG/DL Sodium Level 142 MEQ/L Potassium Level 4.4 MEQ/L Chloride Level 106 MEQ/L Carbon Dioxide Level 29.6 MEQ/L Anion Gap 6 MEQ/L Estimat Glomerular Filtration Rate 67 ML/MIN Total Creatine Kinase 38 U/L Troponin I LESS THAN 0.02 NG/ML MDM Medical Decision Making Medical Screen Exam Complete: Yes Emergency Medical Condition: Yes Interpretation(s) EKG: Sinus rhythm, rate 86, no ST elevation or depression Labs: Electrolytes, normal cardiac enzymes, normal cbc Last Impressions Chest X-Ray 08/31/17 0908 Signed Impressions: CONCLUSION: Minimal bibasilar subsegmental atelectasis Differential Diagnosis Neuropathy, rhabdo, electrolyte imbalance, ACS,musculoskeletal chest pain Narrative Course Patient presents to the emergency department complaining of neuropathy pain and an episode of chest pain. Patient placed on a cardiac nurse practitioner, IV access obtain , EKG/chest x-ray/labs/meds ordered (traamdol 50mg po x 1) 1053: Patient c/o pain. Will give 2mg IV morphine. 1142: Patient feels much better. Is sitting up on the end of the stretcher stating she wants to go home. Advised that b/c she was c/o of an episode, although it was short, of chest pain I needed to repeat ECG and troponin 3 hrs after initial. She declined and states that she wants to go home. She has an appointment with a neuropathy doctor next week. Requesting that I give her pain meds. Patient ambulating in ER without difficulty or assistance prior to d/c. Diagnosis Primary Impression: Leg cramps Additional Impression: Chest pain Qualified Codes: R07.9 - Chest pain, unspecified Patient Instructions: Chest Pain (ED), General Instructions, Leg Cramps (ED) Additional Instructions: 1. Meds as directed. 2. Followup with primary care doctor in 24-48 hours. 3. Return to ER immediately for fever, chest pain, leg swelling, shortness of breath, or for any new/worrisome/worsening symptoms. 4. [place]owup with the "neuropathy" doctor scheduled appointment. Med/Other Pt SpecificInfo: Prescription(s) given Scripts Tramadol (Tramadol) 50 Mg Tab 50 MG PO Q6H Y for PAIN for 2 Days, #8 TAB 0 Refills Prov: Mulu Marshall MD 08/31/17 Disposition: 01 DISCHARGE HOME Condition: Stable Mulu Marshall MD Aug 31, 2017 09:50
[2017-08-31 09:57] LABS: AUTOMATED NEUTROPHIL # 3.1 TH/MM3 (1.8-7.7); BASOPHIL % 0.7 % (0.0-2.0); EOSINOPHIL # 0.1 TH/MM3 (0-0.4); EOSINOPHIL % 1.8 % (0.0-4.0); HEMATOCRIT 37.3 % (35.0-46.0); HEMOGLOBIN 12.1 GM/DL (11.6-15.3); LYMPH % 29.5 % (9.0-44.0); LYMPHOCYTE # 1.6 TH/MM3 (1.0-4.8); MEAN CELL VOLUME 87.6 FL (80.0-100.0); MEAN CORPUSCULAR HEMOGLOBIN 28.3 PG (27.0-34.0); MEAN CORPUSCULAR HGB CONC 32.3 % (32.0-36.0); MEAN PLATELET VOLUME 7.9 FL (7.0-11.0); MONO % 9.6 % (0.0-8.0); MONOCYTE # 0.5 TH/MM3 (0-0.9); NEUT % 58.4 % (16.0-70.0); PLATELET COUNT 245 TH/MM3 (150-450); RED BLOOD COUNT 4.26 MIL/MM3 (4.00-5.30); WHITE BLOOD COUNT 5.3 TH/MM3 (4.0-11.0)
[2017-08-31 10:04] LABS: CHLORIDE 106 MEQ/L (98-107); SODIUM (NA) 142 MEQ/L (136-145)
[2017-08-31 10:07] VITALS: RESP 16; O2SAT 95
[2017-08-31 10:07] LABS: ALBUMIN 3.2 GM/DL (3.4-5.0); CALCIUM 8.7 MG/DL (8.5-10.1); GLUCOSE,RANDOM 80 MG/DL (74-106)
[2017-08-31 10:08] LABS: BICARBONATE 29.6 MEQ/L (21.0-32.0); BLOOD UREA NITROGEN 16 MG/DL (7-18); MAGNESIUM 2.3 MG/DL (1.5-2.5)
[2017-08-31 10:11] LABS: ALT (GPT) 18 U/L (10-53); AST (GOT) 12 U/L (15-37); CREATININE 0.82 MG/DL (0.50-1.00); GLOMERULAR FILTRATION RATE 67 ML/MIN (>89)
[2017-08-31 10:13] LABS: TOTAL BILIRUBIN ADULT 0.2 MG/DL (0.2-1.0); TOTAL PROTEIN 6.9 GM/DL (6.4-8.2)
[2017-08-31 10:14] LABS: ALKALINE PHOSPHATASE 95 U/L (45-117)
--- NOTE | 2017-08-31 10:14 | RADRPT ---
EXAM DATE: 08/31/2017 10:10 AM EDT AGE/SEX: 82 years / Female INDICATIONS: Bilateral leg pain, short of breath CLINICAL DATA: This is the patient's initial encounter. Patient reports that signs and symptoms have been present for 1 day and indicates a pain score of 6/10. MEDICAL/SURGICAL HISTORY: None. None. COMPARISON: [facility] [place] [facility] [place] AP, 05/21/2015. . FINDINGS: A single AP view of the chest demonstrates no evidence of mass, infiltrate or effusion. Minimal biba silar linear densities. Heart normal in size. The cardiomediastinal contours are unremarkable. [place] us structures are intact. CONCLUSION: Minimal bibasilar subsegmental atelectasis Electronically signed by: Keagan Abebe MD 08/31/2017 10:13 AM EDT
[2017-08-31 10:16] LABS: TROPONIN I LESS THAN 0.02 NG/ML (0.02-0.05)
[2017-08-31] MEDS ORDERED: MORPHINE SULFATE 2 MG/ML SYRINGE IV PUSH ONE (11:00)
[2017-08-31 11:28] VITALS: BP 145/95; PULSE 89; RESP 16; O2SAT 99
[2017-08-31] MEDS ORDERED: TRAM50TA PO (11:48)
--- NOTE | 2017-08-31 13:41 | EKG ---
Date Performed: 08/31/2017 Time Performed: 10:01:18 PTAGE: 82 years EKG: Sinus rhythm NORMAL ECG Since PREVIOUS TRACING , no significant change noted PREVIOUS TRACIN05/21/2015 18.17 DOCTOR: Billy Davila Interpretating Date/Time 08/31/2017 13:39:46
== END 2017-08-31 11:57 | disposition home or self-care (01) ==
LOC: PHED 08:55
DX: R25.2 Cramp and spasm (principal); R07.9 Chest pain, unspecified; G62.9 Polyneuropathy, unspecified; M19.90 Unspecified osteoarthritis, unspecified site; K21.9 Gastro-esophageal reflux disease without esophagitis; F41.9 Anxiety disorder, unspecified; F32.9 Major depressive disorder, single episode, unspecified; E78.00 Pure hypercholesterolemia, unspecified; I10 Essential (primary) hypertension
CPT/HCPCS: 71045; 80053; 82550; 83735; 84484; 85025; 93005; 96374; 99285; J2270